=== PATIENT | female | born 1940 | race Caucasian/White ===

== ENCOUNTER 2019-06-05 02:08 | Inpatient (IN) | payer MEDICARE, BC ==
[~2019-06-05] VITALS: Ht 162.6 cm; Wt 72.6 kg
[2019-06-05] VITALS (23 sets, daily range): BP systolic 92–130; BP diastolic 54–93; BMI 27.5
--- NOTE | 2019-06-05 02:15 | NUR ---
Received patient from ER via stretcher to 2308, admission assessment completed per flowsheet. Patient AO x4, calm and cooperative. S1/S2 noted NSR on telemetry, rythmic and regular. Breathing is shallow on 6L via NC with O2 sat 97%, lung sounds clear bilateral upper and mid with diminished lower. Abdomen is round/soft with bowel sounds active x4, non-tender. All pulses palpable with cap refill < 3 sec, skin warm/dry. C/O headache/R knee aching, repositioned with slight stated relief. Paged Dr Manuel to notify of arrival, no further needs at this time. See flowsheet for details, all VSS and will continue to monitor.
[2019-06-05] MEDS ORDERED: MUPIROCIN22 GM TOPICAL (02:18)
[2019-06-05] MEDS ORDERED: LISINOPRIL-HCT1 EAC4 PO (02:19)
[2019-06-05] MEDS ORDERED: VITAMIN D250000 UNIT PO (02:19)
[2019-06-05] MEDS ORDERED: EVISTA60 MG PO (02:19)
[2019-06-05] MEDS ORDERED: CARDIZEM 90 MG90 MG PO (02:19)
[2019-06-05] MEDS ORDERED: ALEVE220 MG PO (02:21)
[2019-06-05] MEDS ORDERED: MERIBIN5 MG PO (02:22)
[2019-06-05] MEDS ORDERED: ASPIRIN EC81 M1 PO (02:23)
[2019-06-05 04:59] LABS: BASOPHILS 0 % (0-2); EOSINOPHILS 0.7 % (0-7); HEMATOCRIT 31.9 % (36.0-48.0); HEMOGLOBIN 10.1 g/dL (12-16); IMMATURE GRANULOCYTES 0.3 % (0-5); LYMPHOCYTES 12.6 % (15-50); MCH 28.5 pg (26.0-34.0); MCHC 31.7 g/dL (31.0-37.0); MCV 90.1 fL (80.0-100.0); MEAN PLATELET VOLUME 9.2 fL (7.4-10.4); MONOCYTES 9.8 % (2-11); NEUTROPHILS 76.6 % (40-80); PLATELET COUNT 134 10x3/uL (130-400); RBC 3.54 10x6/uL (4.00-5.40); RDW 13.5 % (11.5-14.5); WBC 7.2 10x3/uL (4.8-10.8)
[2019-06-05 05:15] LABS: APTT 34.9 SECONDS (22.8-39.4); INR 1.48 (0.85-1.17); PROTIME 17.3 SECONDS (11.6-15.0)
--- NOTE | 2019-06-05 05:15 | NUR ---
Patient sleeping in bed with eyes closed, no s/s of distress at this time. Lung sounds clear bilateral upper and mid with diminished lower, all pulses palpable with cap refill < 3 sec. Medication pulled by greenhouse manager, given as ordered. No further needs and will continue to monitor.
[2019-06-05 05:24] LABS: ALKALINE PHOSPHATASE 75 U/L (46-116); ALT (SGPT) 20 U/L (10-68); BILIRUBIN - TOTAL 0.27 mg/dL (0.2-1.3); CALC OSMOLALITY 277 mosm/kg (275-300); CALCIUM 7.9 mg/dL (8.5-10.1); CHLORIDE - SERUM 104 mmol/L (98-107); CREATININE - SERUM 0.5 mg/dL (0.6-1.3); GLUCOSE 116 mg/dL (74-106); MAGNESIUM - SERUM 1.8 mg/dL (1.8-2.4); POTASSIUM - SERUM 3.5 mmol/L (3.5-5.1); PROTEIN - SERUM 5.5 g/dL (6.4-8.2); SODIUM 140 mmol/L (136-145); UREA NITROGEN 8 mg/dL (7-18); eGFR NON AFRICAN AMERICAN > 90 mL/min (90-120)
--- NOTE | 2019-06-05 08:02 | NUR ---
LYING IN BED AWAKE AT THIS TIME. NO ACUTE DISTRESS NOTED. VSS. PT COMPLAINT OF DISCOMFORT TO RT KNEE WHERE SHE HAD SURGERY ON THE . WILL NOTIFY PULMONOLOGY REGARDING THIS. TURNED Q2H. CALL LIGHT IN REACH. WILL CONTINUE PLAN OF CARE.
--- NOTE | 2019-06-05 09:06 | NUR ---
CALLED [facility] TO SEE IF THEY WILL SEND PT INFO FROM STAY AT THAT HOSPITAL. SPOKE WITH JOVANA WHO STATED SHE WILL FAX THE INFORMATION. WAITING ON FAX.
--- NOTE | 2019-06-05 10:06 | NUR ---
PAPERWORK RECIEVED FROM OTHER HOSPITAL, PLACED IN CHART.
--- NOTE | 2019-06-05 10:14 | NUR ---
FAMILY AT BEDSIDE AT THIS TIME. NO ACUTE DISTRESS NOTED. WILL CONTINUE PLAN OF CARE. ALSO AT THIS TIME DR HORVATH ON UNIT AND HAS SPOKEN WITH FAMILY. VSS. WILL CONTINUE PLAN OF CARE.
--- NOTE | 2019-06-05 10:32 | NUR ---
DR NIEVES PAGED REGARDING CONSULT.
--- NOTE | 2019-06-05 10:34 | NUR ---
DR NIEVES NOTIFIED OF CONSULT.
--- NOTE | 2019-06-05 12:09 | NUR ---
UP IN BED VISITING WITH FAMILY AND EATING LUNCH AT THIS TIME. NO ACUTE DISTRESS NOTED. VSS. CALL LIGHT IN REACH. WILL CONTINUE PLAN OF CARE.
--- NOTE | 2019-06-05 13:42 | NUR ---
DALEY PLACED AT THIS TIME PER PHYSICIAN ORDERS FOR ACCURATE I&O. 16F PLACED. CLEAR YELLOW URINE FLOWING IN TO CLOSED CONTAINER. NO ACUTE DISTRESS NOTED. WILL CONTINUE PLAN OF CARE.
--- NOTE | 2019-06-05 15:09 | NUR ---
NO ACUTE DISTRESS NOTED. VSS. PT ASSISTED WITH REPOSITIONING Q2H. CALL LIGHT IN REACH. WILL CONTINUE PLAN OF CARE.
--- NOTE | 2019-06-05 19:00 | NUR ---
PT REPORT RECEIVED FROM DAY SHIFT NURSE. VSS. PERFORMED SHIFT ASSESSMENT WILL CONTINUE TO MONITOR
--- NOTE | 2019-06-05 21:00 | NUR ---
PT REQUESTED LIGHT BE TURNED OFF. PT RESTING IN BED. WILL CONTINUE TO MONITOR
--- NOTE | 2019-06-05 23:00 | NUR ---
PT REASSESSMENT COMPLETED. PT RESTING IN BED. NO SIGNS OF DISTRESS NOTED. VSS. WILL CONTINUE TO MONITOR
[2019-06-06] VITALS (17 sets, daily range): BP systolic 95–156; BP diastolic 59–91
--- NOTE | 2019-06-06 01:00 | NUR ---
PT RESTING IN BED. NO COMPLAINTS NOTED AT THIS TIME. WILL CONTINUE TO MONITOR
--- NOTE | 2019-06-06 03:00 | NUR ---
PT RESTING IN BED. NO SIGNS OF DISTRESS NOTED. REASSESSMENT COMPLETED. VSS. NO COMPLAINTS OF PAIN AT THIS TIME. WILL CONTINUE TO MONITOR
[2019-06-06 03:43] LABS: HEMATOCRIT 30.8 % (36.0-48.0); HEMOGLOBIN 9.7 g/dL (12-16); MCHC 31.5 g/dL (31.0-37.0); MEAN PLATELET VOLUME 8.7 fL (7.4-10.4); PLATELET COUNT 155 10x3/uL (130-400); RBC 3.46 10x6/uL (4.00-5.40); RDW 13.4 % (11.5-14.5); WBC 5.9 10x3/uL (4.8-10.8)
[2019-06-06 04:20] LABS: ALKALINE PHOSPHATASE 75 U/L (46-116); ALT (SGPT) 18 U/L (10-68); BILIRUBIN - TOTAL 0.29 mg/dL (0.2-1.3); CALC OSMOLALITY 281 mosm/kg (275-300); CALCIUM 7.3 mg/dL (8.5-10.1); CARBON DIOXIDE 33.2 mmol/L (21.0-32.0); CHLORIDE - SERUM 106 mmol/L (98-107); CREATININE - SERUM 0.4 mg/dL (0.6-1.3); GLUCOSE 97 mg/dL (74-106); MAGNESIUM - SERUM 1.9 mg/dL (1.8-2.4); PHOSPHOROUS 2.2 mg/dL (2.5-4.9); POTASSIUM - SERUM 3.5 mmol/L (3.5-5.1); PRO BNP 3670 pg/mL (0-450); SODIUM 142 mmol/L (136-145); UREA NITROGEN 10 mg/dL (7-18); eGFR NON AFRICAN AMERICAN > 90 mL/min (90-120)
[2019-06-06 04:24] LABS: TROPONIN-I < 0.017 ng/mL (0.000-0.060)
--- NOTE | 2019-06-06 05:00 | NUR ---
PT RESTING IN BED. AWAKENS EASILY. ELECTROLYTE PROTOCOL IN PLACE. REPLACED K+ AND PHOSPHORUS. WILL CONTINUE TO MONITOR
[2019-06-06 07:30] LABS: EOSINOPHILS 1 % (0-7); LYMPHOCYTES 17 % (15-50); MONOCYTES 8 % (2-11); NEUTROPHILS 74 % (40-80); PLATELET ESTIMATE NORMAL
--- NOTE | 2019-06-06 07:38 | NUR ---
UP IN BED AWAKE AT THIS TIME WATCHING TV. NO ACUTE DISTRESS NOTED. VSS. CALL LIGHT IN REACH. PT IS ALERT AND ORIENTED AND DENIES ANY NEEDS. WILL CONTINUE PLAN OF CARE.
--- NOTE | 2019-06-06 09:38 | NUR ---
UP IN BED VISITING WITH FAMILY. DENIES ANY NEEDS. NO ACUTE DISTRESS NOTED. WILL CONTINUE PLAN OF CARE.
--- NOTE | 2019-06-06 11:48 | NUR ---
UP IN BED EATING LUNCH AT THIS TIME. NO ACUTE DISTRESS NOTED. VSS. CALL LIGHT IN REACH. PER DR HORVATH, TRANSFER PT. WILL CONTINUE PLAN OF CARE.
--- NOTE | 2019-06-06 13:47 | NUR ---
PHYSICAL THERAPY IN PT ROOM WORKING WITH PT. NO ACUTE DISTRESS NOTED. VSS. WILL CONTINUE PLAN OF CARE.
--- NOTE | 2019-06-06 15:16 | NUR ---
NO ACUTE DISTRESS NOTED. VSS. TURNED Q2H. WILL CONTINUE PLAN OF CARE.
--- NOTE | 2019-06-06 16:15 | NUR ---
PER DR MATTHEWS, OKKIA TO TRANSFER TO THE FLOOR.
--- NOTE | 2019-06-06 18:16 | NUR ---
PER DR MATTHEWS; SALINE LOCK IV. OKAY FOR CPM FOR RT KNEE TO BE USED 2H AT A TIME THREE TIMES A DAY TO EQUAL 6 HOURS TOTAL A DAY PT WAS DIRECTED TO DO [facility]. ALSO STATED TO ONIEL DALEY LONG PT HAS NO RETENTION. WILL PLACE ORDERS. PT DENIES ANY NEEDS. WILL CONTINUE PLAN OF CARE.
--- NOTE | 2019-06-06 19:12 | NUR ---
DALEY DC AT THIS TIME PER ORDERS. CATHETER TIP INTACT. ALSO NOTED PT TO TRANSFER TO 2230. CALLING TO GIVE REPORT AT THIS TIME.
--- NOTE | 2019-06-06 19:21 | NUR ---
REPORT CALLED TO RECIEVING NURSE, KESHIA. KESHIA REQUESTED STAFF WAIT 15 MIN BEFORE BRINGING PT OVER. NO ACUTE DISTRESS NOTED. VSS. WILL CONTINUE PLAN OF CARE.
--- NOTE | 2019-06-06 19:35 | NUR ---
WAITING TO TRANSFER PT TO FLOOR. VSS
[2019-06-07 04:00] VITALS: BP 145/81
--- NOTE | 2019-06-07 04:16 | NUR ---
reseved pt. at shift change alert and orented . IV to right fr F?C had been d/c just before arivail and no output yet per report. O2 via n/c at 3L. Total right knee on fri. at [facility]. per report she my use her CPM as oreded by the dr who did her surg. 2hr at a time 3x a day. Family came and stated she has a dry cough that has been present befor knee surg. and having some trouble swallowing, tok meds whole with out diffulity. Telemetry in place. call light in reach. no s/s of distress.
[2019-06-07 05:04] LABS: BASOPHILS 0.2 % (0-2); EOSINOPHILS 2.4 % (0-7); HEMATOCRIT 29.7 % (36.0-48.0); HEMOGLOBIN 9.8 g/dL (12-16); IMMATURE GRANULOCYTES 0.2 % (0-5); LYMPHOCYTES 24.1 % (15-50); MCH 29.3 pg (26.0-34.0); MCV 88.7 fL (80.0-100.0); MEAN PLATELET VOLUME 9.1 fL (7.4-10.4); MONOCYTES 7.9 % (2-11); NEUTROPHILS 65.2 % (40-80); RBC 3.35 10x6/uL (4.00-5.40); RDW 13.2 % (11.5-14.5); WBC 5.3 10x3/uL (4.8-10.8)
[2019-06-07 05:10] LABS: PLATELET COUNT 191 10x3/uL (130-400)
[2019-06-07 05:19] LABS: ALBUMIN 1.8 g/dL (3.4-5.0); ALKALINE PHOSPHATASE 69 U/L (46-116); ALT (SGPT) 14 U/L (10-68); BILIRUBIN - TOTAL 0.26 mg/dL (0.2-1.3); CALC OSMOLALITY 281 mosm/kg (275-300); CARBON DIOXIDE 33.1 mmol/L (21.0-32.0); CHLORIDE - SERUM 105 mmol/L (98-107); CREATININE - SERUM 0.3 mg/dL (0.6-1.3); GLUCOSE 100 mg/dL (74-106); POTASSIUM - SERUM 3.7 mmol/L (3.5-5.1); PROTEIN - SERUM 5.3 g/dL (6.4-8.2); SODIUM 142 mmol/L (136-145); UREA NITROGEN 9 mg/dL (7-18); eGFR NON AFRICAN AMERICAN > 90 mL/min (90-120)
[2019-06-07 08:52] VITALS: BP 161/83
[2019-06-07 12:03] VITALS: BP 148/76
[2019-06-07 13:18] LABS: % SATURATION 10 % (15-55); IRON 17 ug/dl (35-150); TOTAL IRON BIND CAPACITY 169 ug/dl (260-445); UNSAT IRON BIND CAPACITY 152 ug/dl (150-375)
[2019-06-07 13:39] VITALS: Ht 162.6 cm; Wt 72.6 kg
[2019-06-07 13:44] LABS: FERRITIN 176 ng/mL (3-244)
--- NOTE | 2019-06-07 15:04 | MORECARE ---
CASE MANAGEMENT DISCHARGE SUMMARY PATIENT: JASS SAM UNIT: [id number] ADM DATE: 06/05/19 AGE: 78 : 39 SEX: F ROOM/BED: D.2230 AUTHOR: CONSTANCE FONG PHYSICIAN: REFERRING PHYSICIAN: JENAE LAUGHLIN MD DATE OF SERVICE: 06/07/19 Discharge Plan Patient Name: JASS SAM Facility: [facility]:[place] : 1940 Planned Disposition: Long Term Facility Anticipated Discharge Date: Discharge Date: Expected LOS: Initial Reviewer: [id number] Initial Review Date: 06/07/2019 Generated: 06/07/19 4:04 pm Comments DCP- Discharge Planning Updated by [id number]: Kimberly Sena on 06/07/19 2:[address] Patient Name: JASS SAM Admission Status: Elective Accout number: [id number] Admission Date: 06-05-2019 : 1940 Admission Diagnosis: Attending: JENAE HONG Current LOS: 2 Anticipated DC Date: Planned Disposition: Primary Insurance: MEDICARE A & B Discharge Planning Comments: CM met with patient at bedside after explaining CM role and obtaining verbal consent. STATES IS SETTING HER UP [facility] CHERELLE SIGNED. CM TO FOLLOW AND ASSIST. Plastics Fabrication Supervisor: Kimberly Sena DCPIA - Discharge Planning Initial Assessment Updated by [id number]: Kimberly Sena on 06/07/19 3:02 pm * Is the patient Alert and Oriented? Yes * PCP SMALLS * Pharmacy [facility] * Preadmission Environment Home with Family * ADLs Independent * Other Equipment WALKER, CPM * Additional services required to return to the preadmission environment? Yes * Can the patient safely return to the preadmission environment? Yes * Has this patient been hospitalized within the prior 30 days at any hospital? No External Providers [facility] [place] Next Contact Date: Service Request Date: Service Type: Resolution: Reviewer: Comments: Coverage Notice Reviewer: [id number] Letty Sena Notice Issued Date-Time: 06/07/2019 14:58 Notice Type: Patient Choice Letter Notice Delivered To: Patient Relationship to Patient: Rehabilitation Therapy Aide Name: Delivery Method: HAND - Hand Delivered Brenda Days: Prior Verbal Notification: Recipient Understood Notice: Yes Recipient Signature: Yes Med Rec Note Co-signed by Attending: Coverage Notice Comment: [facility] Patient Name: JASS SAM Page [phone] at 1504 All edits/amendments must be made on the electronic document DICTATION DATE: 06/07/19 150 CHEMICAL TANK WORKER: YORDY 06/07/19 1504 RPT#: [id number] DC DATE: STATUS: ADM IN [facility] [address] [place] [address] END OF REPORT
--- NOTE | 2019-06-07 15:15 | NUR ---
Rehab Note- Acute INpatient Rehab prescreen order received. The patient and family plan for her to go to [facility] post acute hospital stay. Spoke with MARTHA Harris. Thank you for this referral! Luz Echevarria RN Clinical Liaison, [facility]
--- NOTE | 2019-06-07 15:21 | NUR ---
PATIENT ON CPM. SAYS SHE COMES OFF AT 1615. NO NEEDS AT THIS TIME. SHE IS RESTING AND HOPING TO TAKE A NAP. CL IN REACH. NO NEEDS AT THIS TIME.
--- NOTE | 2019-06-07 16:10 | MORECARE ---
CASE MANAGEMENT DISCHARGE SUMMARY PATIENT: AJSS SAM UNIT: [id number] ADM DATE: 06/05/19 AGE: 78 : 39 SEX: F ROOM/BED: D.2230 AUTHOR: AJITDOC PHYSICIAN: REFERRING PHYSICIAN: JENAE LAUGHLIN MD DATE OF SERVICE: 06/07/19 Discharge Plan Patient Name: JASS SAM Facility: [facility]:[place] : 1940 Planned Disposition: Penitentiary Facility Anticipated Discharge Date: Discharge Date: Expected LOS: Initial Reviewer: [id number] Initial Review Date: 06/07/2019 Generated: 06/07/19 5:09 pm DCP- Discharge Planning Updated by [id number]: Kimberly Sena on 06/07/19 3:[address] Patient Name: JASS SAM Admission Status: Elective Accout number: [id number] Admission Date: 06-05-2019 : 1940 Admission Diagnosis: Attending: JENAE HONG Current LOS: 2 Anticipated DC Date: Planned Disposition: Primary Insurance: MEDICARE A & B Discharge Planning Comments: CM met with patient at bedside after explaining CM role and obtaining verbal consent. STATES IS SETTING HER UP WITH [facility] CHERELLE SIGNED. CM TO FOLLOW AND ASSIST. Painter Plate: Kimberly Sena Appended by Kimberly Sena on 06/07/2019 16:04 CDT: FAXED REFERRAL TO [facility] WITH [place]. DCPIA - Discharge Planning Initial Assessment Updated by [id number]: Kimberly Sena on 06/07/19 3:02 pm * Is the patient Alert and Oriented? Yes * PCP SMALLS * Pharmacy [facility] * Preadmission Environment Home with Family * ADLs Independent * Other Equipment WALKER, CPM * Additional services required to return to the preadmission environment? Yes * Can the patient safely return to the preadmission environment? Yes * Has this patient been hospitalized within the prior 30 days at any hospital? No External Providers [facility] [place] Next Contact Date: Service Request Date: Service Type: Resolution: Reviewer: Comments: Coverage Notice Reviewer: [id number] - Kimberly Sena Notice Issued Date-Time: 06/07/2019 14:58 Notice Type: Patient Choice Letter Notice Delivered To: Patient Relationship to Patient: Family Educator Name: Delivery Method: HAND - Hand Delivered Brenda Days: Prior Verbal Notification: Recipient Understood Notice: Yes Recipient Signature: Yes Med Rec Note Co-signed by Attending: Coverage Notice Comment: [facility] Last DP export: 06/07/19 2:04 p Patient Name: JASS SAM Page [phone] at 1610 All edits/amendments must be made on the electronic document DICTATION DATE: 06/07/191608 SORT LINE WORKER: YORDY 06/07/19 160 RPT#: [id number] DC DATE: STATUS: ADM IN [facility] [address] [place] [address] END OF REPORT
[2019-06-07 17:02] VITALS: BP 100/70
--- NOTE | 2019-06-07 17:59 | NUR ---
PATIENT ON CPM MACHINE AGAIN. NO NEEDS AT THIS TIME. CL IN REACH WCTM
--- NOTE | 2019-06-07 19:21 | NUR ---
LYING IN BED WITH FAMILY AT BEDSIDE. ABLE TO VOICE ALL NEEDS. COMPLAINS OF SLIGHT HEADACHE, WILL TREAT WITH MEDICATION, SHOWS NO S/S OF ANY ACUTE DISTRESS. VS WNL. WILL NOTE ANY CHANGE.
[2019-06-07 19:38] LABS: APPEARANCE CLEAR (CLEAR); BILIRUBIN NEGATIVE (NEGATIVE); COLOR YELLOW (YELLOW); GLUCOSE NEGATIVE (NEGATIVE); KETONE NEGATIVE (NEGATIVE); NITRITE NEGATIVE (NEGATIVE); PROTEIN NEGATIVE (NEGATIVE); RED CELLS - URINE 0-5 /hpf (0-5); UROBILINOGEN NORMAL (NORMAL); WHITE CELLS - URINE 0-5 /hpf (NEGATIVE)
[2019-06-07 19:39] LABS: BACTERIA FEW /hpf (NEGATIVE)
[2019-06-07 20:34] VITALS: BP 130/68
--- NOTE | 2019-06-07 20:59 | NUR ---
AT 1999, HEADACHE WAS TREATED VIA MEDICATION PER ORDERS, WILL NOTE ANY CHANGE.
--- NOTE | 2019-06-07 21:00 | NUR ---
MEDICATION WAS EFFECTIVE FOR HEADACHE, WILL NOTE ANY CHANGE.
[2019-06-08 01:22] VITALS: BP 114/55
--- NOTE | 2019-06-08 02:30 | NUR ---
AT 0120, REQUESTED PAIN MEDICATION, GIVEN PER ORDERS. AT THIS TIME, PT IS RESTING QUIETLY IN BED WITH EYES CLOSED AND NO S/S OF ANY ACUTE DISTRESS. WILL NOTE ANY CHANGE.
--- NOTE | 2019-06-08 03:06 | NUR ---
I have reviewed this patient and I concur with the Shift Assessment completed by the Licensed Practical Nurse today this shift.
[2019-06-08 05:18] VITALS: BP 125/60
[2019-06-08 06:05] LABS: BASOPHILS 0.2 % (0-2); EOSINOPHILS 2.6 % (0-7); HEMATOCRIT 31.5 % (36.0-48.0); IMMATURE GRANULOCYTES 0.2 % (0-5); LYMPHOCYTES 21.2 % (15-50); MCHC 31.7 g/dL (31.0-37.0); MCV 88.2 fL (80.0-100.0); MEAN PLATELET VOLUME 8.9 fL (7.4-10.4); MONOCYTES 8.8 % (2-11); PLATELET COUNT 214 10x3/uL (130-400); RBC 3.57 10x6/uL (4.00-5.40); RDW 13.4 % (11.5-14.5); WBC 5.1 10x3/uL (4.8-10.8)
[2019-06-08 06:38] LABS: ALBUMIN 2.1 g/dL (3.4-5.0); ALKALINE PHOSPHATASE 73 U/L (46-116); ALT (SGPT) 16 U/L (10-68); BILIRUBIN - TOTAL 0.36 mg/dL (0.2-1.3); CALC OSMOLALITY 285 mosm/kg (275-300); CALCIUM 7.8 mg/dL (8.5-10.1); CARBON DIOXIDE 34.6 mmol/L (21.0-32.0); CHLORIDE - SERUM 105 mmol/L (98-107); GLUCOSE 101 mg/dL (74-106); POTASSIUM - SERUM 3.5 mmol/L (3.5-5.1); PROTEIN - SERUM 5.3 g/dL (6.4-8.2); SODIUM 144 mmol/L (136-145); UREA NITROGEN 9 mg/dL (7-18)
[2019-06-08 06:39] LABS: CREATININE - SERUM 0.5 mg/dL (0.6-1.3); eGFR NON AFRICAN AMERICAN > 90 mL/min (90-120)
[2019-06-08 08:11] LABS: HAPTOGLOBIN 288 mg/dL (34-200)
[2019-06-08 08:36] LABS: INR 1.23 (0.85-1.17)
[2019-06-08 08:57] VITALS: BP 135/74
[2019-06-08 10:10] LABS: ACLA - IGG AB <9 GPL U/mL (0-14); ACLA - IGM AB <9 MPL U/mL (0-12)
--- NOTE | 2019-06-08 10:58 | NUR ---
PATIENT CO A HEADACHE. REQUESTS A TYLENOL. WILL PROVIDE. CL IN REACH. FRESH WATER PROVIDED. [facility]
[2019-06-08 12:11] VITALS: BP 124/72
--- NOTE | 2019-06-08 14:58 | NUR ---
Calorie count - : kcal protein Breakfast 280 12 Lunch 300 15 Dinner 350 10 HS snack 200 10 Total 1130 kcal 47 gm protein
--- NOTE | 2019-06-08 15:32 | NUR ---
OT NOTE: PT COMPLETED GROOMING TASKS WITH SETUP. PT COMPLETED BUE AROM EXS. PT TOLERATED THERAPY WELL. THANK YOU, TAISHA PASCUAL
--- NOTE | 2019-06-08 20:08 | NUR ---
SPEECH THERAPY SAID THAT THEY SHOULD CONSULT GI FOR PATIENTS SWALLOWING PROBLEM SINCE IT OCCURS BELOW THE NECK AND BEYOND HER SCOPE.
[2019-06-08 22:08] VITALS: BP 139/71
[2019-06-09 00:50] VITALS: BP 114/60
--- NOTE | 2019-06-09 00:53 | NUR ---
PT RESTING IN BED. EYE CLOSED. NO SIGNS OF DISTRESS. BREATHING EVEN AND UNLABORED. IV SITE RT FA DRESSING CLEAN DRY AND INTACT. NO SIGNS OF INFECTION. 3LO2 HIGH FLOW NASAL CANNULA. LUNG SOUNDS CLEAR. BOWEL SOUNDS ACTIVE. TELE MONTIOR ON 110 SINUS. SKIN CLEAN DRY AND INTACT. NO SIGNS OF INFECTION. WILL CONTINUE PLAN OF CARE. CALL LIGHT IN REACH. BED LOWERED AND LOCKED. BED RAILS UPX2.
--- NOTE | 2019-06-09 02:18 | NUR ---
I have reviewed this patient and I concur with the Shift Assessment completed by the Licensed Practical Nurse today this shift.
[2019-06-09 05:34] VITALS: BP 129/60
[2019-06-09 05:43] LABS: INR 1.17 (0.85-1.17); PROTIME 14.4 SECONDS (11.6-15.0)
[2019-06-09 05:50] LABS: BASOPHILS 0.2 % (0-2); EOSINOPHILS 2.9 % (0-7); HEMATOCRIT 32.1 % (36.0-48.0); HEMOGLOBIN 10.2 g/dL (12-16); IMMATURE GRANULOCYTES 0.4 % (0-5); LYMPHOCYTES 26.3 % (15-50); MCH 28.2 pg (26.0-34.0); MCHC 31.8 g/dL (31.0-37.0); MCV 88.7 fL (80.0-100.0); MEAN PLATELET VOLUME 9.2 fL (7.4-10.4); MONOCYTES 8.3 % (2-11); NEUTROPHILS 61.9 % (40-80); PLATELET COUNT 244 10x3/uL (130-400); RBC 3.62 10x6/uL (4.00-5.40); RDW 13.8 % (11.5-14.5); WBC 5.5 10x3/uL (4.8-10.8)
[2019-06-09 05:57] LABS: ALBUMIN 2.3 g/dL (3.4-5.0); ALKALINE PHOSPHATASE 85 U/L (46-116); BILIRUBIN - TOTAL 0.37 mg/dL (0.2-1.3); CALC OSMOLALITY 279 mosm/kg (275-300); CALCIUM 8.5 mg/dL (8.5-10.1); CARBON DIOXIDE 33.7 mmol/L (21.0-32.0); CHLORIDE - SERUM 103 mmol/L (98-107); CREATININE - SERUM 0.5 mg/dL (0.6-1.3); GLUCOSE 99 mg/dL (74-106); PROTEIN - SERUM 6.2 g/dL (6.4-8.2); SODIUM 141 mmol/L (136-145); UREA NITROGEN 10 mg/dL (7-18); eGFR NON AFRICAN AMERICAN > 90 mL/min (90-120)
[2019-06-09 06:05] LABS: ALT (SGPT) 32 U/L (10-68)
[2019-06-09 09:00] VITALS: BP 150/75
--- NOTE | 2019-06-09 11:19 | NUR ---
NUTRITION F/U PT OOR, ONLY SMALL AMT BREAKFAST EATEN. INTAKE RECORDS INDICATE ~50% INTAKE PREVIOUS 3 MEALS. WILL CONTINUE TO PROVIDE AHA DIET, MONITOR PO INTAKE. RD FOLLOWING
[2019-06-09 12:05] VITALS: BP 125/65
[2019-06-09] MEDS ORDERED: LOVENOX80 MG/0.8 SC (12:16)
[2019-06-09] MEDS ORDERED: MUCINEX DM ER1 EAC1 PO (12:16)
[2019-06-09] MEDS ORDERED: Tessalon Perle PO (12:17)
[2019-06-09] MEDS ORDERED: OMNICEF300 MG PO (12:18)
[2019-06-09] MEDS ORDERED: ALBUTEROL SULF8.5 GM INH (12:18)
[2019-06-09] MEDS ORDERED: COUMADIN6 MG PO (12:21)
--- NOTE | 2019-06-09 12:28 | NUR ---
PT RESTING IN BED. NO SIGNS OF DISTRESS. IV TO RIGHT FORARM PATENT NO REDNESS OR TENDERNESS. ON TELEMETRY 87 SR. ON 3L NC. HAS INCISION TO RIGHT KNEE DRESSING CLEAN AND INTACT. COMPLAINS OF PAIN. MEDICATIONS GIVEN. DENIES ANY FURTHER NEED AT THIS TIME. CALL LIGHT IN REACH. BED LOW POSITION. FAMILY AT BEDSIDE. FALL PRECAUTIONS IN PLACE.
--- NOTE | 2019-06-09 12:33 | MORECARE ---
CASE MANAGEMENT DISCHARGE SUMMARY PATIENT: JASS SAM UNIT: [id number] ADM DATE: 06/05/19 AGE: 78 : 39 SEX: F ROOM/BED: D.2230 AUTHOR: AJIT,DOC PHYSICIAN: REFERRING PHYSICIAN: JENAE LAUGHLIN MD DATE OF SERVICE: 06/09/19 Discharge Plan Patient Name: JASS SAM Facility: [facility]:[place] : 1940 Planned Disposition: Long Term Facility Anticipated Discharge Date: Discharge Date: Expected LOS: Initial Reviewer: [id number] Initial Review Date: 06/07/2019 Generated: 06/09/19 1:33 pm Comments DCP- Discharge Planning Updated by [email or web address]: Caitlin Melchor on 06/09/19 11:[address] Spoke with Ava at [facility] and rehab, she has been accepted. Ava states they can do a Lovenox bridge with Coumadin and have lab drawn and adjust as needed. I spoke with Esteban Krishna, they will discharge today. telecommunicator supervisor per Ava is at 2PM. She called her daughter in ultrasound and notified her . She will be going to a skilled (Medicare) bed. DCP- Discharge Planning Updated by [id number]: Kimberly Sena on 06/07/19 3:[address] Patient Name: JASS SAM Admission Status: Elective Accout number: [id number] Admission Date: 06-05-2019 : 1940 Admission Diagnosis: Attending: JENAE HONG Current LOS: 2 Anticipated DC Date: Planned Disposition: Primary Insurance: MEDICARE A & B Discharge Planning Comments: CM met with patient at bedside after explaining CM role and obtaining verbal consent. STATES IS SETTING HER UP WITH [facility]. CHERELLE SIGNED. CM TO FOLLOW AND ASSIST. Biological Engineer: Kimberly Sena Appended by Kimberly Sena on 06/07/2019 16:04 CDT: FAXED REFERRAL TO [facility] WITH [place]. DCPIA - Discharge Planning Initial Assessment Updated by [id number]: Kimberly Sena on 06/07/19 3:02 pm * Is the patient Alert and Oriented? Yes * PCP SMALLS * Pharmacy [facility] * Preadmission Environment Home with Family * ADLs Independent * Other Equipment WALKER, CPM * Additional services required to return to the preadmission environment? Yes * Can the patient safely return to the preadmission environment? Yes * Has this patient been hospitalized within the prior 30 days at any hospital? No Coverage Notice Reviewer: [id number] Letty Sena Notice Issued Date-Time: 06/07/2019 14:58 Notice Type: Patient Choice Letter Notice Delivered To: Patient Relationship to Patient: Retail Product Advisor Name: Delivery Method: HAND - Hand Delivered Brenda Days: Prior Verbal Notification: Recipient Understood Notice: Yes Recipient Signature: Yes Med Rec Note Co-signed by Attending: Coverage Notice Comment: [facility] Reviewer: [id number] Letty Melchor Notice Issued Date-Time: 06/09/2019 12:00 Notice Type: IM Discharge Notice Notice Delivered To: Patient Relationship to Patient: Self Retail Product Advisor Name: Delivery Method: HAND - Hand Delivered Brenda Days: Prior Verbal Notification: Recipient Understood Notice: Yes Recipient Signature: Yes Med Rec Note Co-signed by Attending: Coverage Notice Comment: IMM explained, signed, given, copy placed in MR Last DP export: 06/07/19 3:10 p Patient Name: JASS SAM Page [phone] at 1233 All edits/amendments must be made on the electronic document DICTATION DATE: 06/09/19 1232 ELECTRIC MOTOR TESTER: YORDY 06/09/19 1232 RPT#: [id number] DC DATE: STATUS: ADM IN [facility] [address] [place] [address] END OF REPORT
--- NOTE | 2019-06-09 14:50 | MORECARE ---
CASE MANAGEMENT DISCHARGE SUMMARY PATIENT: JASS SAM UNIT: [id number] ADM DATE: 06/05/19 AGE: 78 : 39 SEX: F ROOM/BED: D.2230 AUTHOR: AJIT,DOC PHYSICIAN: REFERRING PHYSICIAN: JENAE LAUGHLIN MD DATE OF SERVICE: 06/09/19 Discharge Plan Patient Name: JASS SAM Facility: [facility]:[place] : 1940 Planned Disposition: Usp Facility Anticipated Discharge Date: Discharge Date: Expected LOS: Initial Reviewer: [id number] Initial Review Date: 06/07/2019 Generated: 06/09/19 3:49 pm Comments DCP- Discharge Planning Updated by [email or web address]: Caitlin Melchor on 06/09/19 11:[address] Spoke with Ava at [facility] and rehab, she has been accepted. Ava states they can do a Lovenox bridge with Coumadin and have lab drawn and adjust as needed. I spoke with Esteban Krishna, they will discharge today. supervisor show operations per Ava is at 2PM. She called her daughter in ultrasound and notified her . She will be going to a skilled (Medicare) bed. DCP- Discharge Planning Updated by [id number]: Kimberly Sena on 06/07/19 3:[address] Patient Name: JASS SAM Admission Status: Elective Accout number: [id number] Admission Date: 06-05-2019 : 1940 Admission Diagnosis: Attending: JENAE HONG Current LOS: 2 Anticipated DC Date: Planned Disposition: Primary Insurance: MEDICARE A & B Discharge Planning Comments: CM met with patient at bedside after explaining CM role and obtaining verbal consent. STATES IS SETTING HER UP WITH [facility]. CHERELLE SIGNED. CM TO FOLLOW AND ASSIST. Spout Positioner: Kimberly Sena Appended by Kimberly Sena on 06/07/2019 16:04 CDT: FAXED REFERRAL TO [facility] WITH [place]. DCPIA - Discharge Planning Initial Assessment Updated by [id number]: Kimberly Sena on 06/07/19 3:02 pm * Is the patient Alert and Oriented? Yes * PCP SMALLS * Pharmacy [facility] * Preadmission Environment Home with Family * ADLs Independent * Other Equipment WALKER, CPM * Additional services required to return to the preadmission environment? Yes * Can the patient safely return to the preadmission environment? Yes * Has this patient been hospitalized within the prior 30 days at any hospital? No Coverage Notice Reviewer: [id number] Letty Sena Notice Issued Date-Time: 06/07/2019 14:58 Notice Type: Patient Choice Letter Notice Delivered To: Patient Relationship to Patient: Machine Shop Specialist Name: Delivery Method: HAND - Hand Delivered Brenda Days: Prior Verbal Notification: Recipient Understood Notice: Yes Recipient Signature: Yes Med Rec Note Co-signed by Attending: Coverage Notice Comment: [facility] Reviewer: [id number] Letty Melchor Notice Issued Date-Time: 06/09/2019 12:00 Notice Type: IM Discharge Notice Notice Delivered To: Patient Relationship to Patient: Self Machine Shop Specialist Name: Delivery Method: HAND - Hand Delivered Brenda Days: Prior Verbal Notification: Recipient Understood Notice: Yes Recipient Signature: Yes Med Rec Note Co-signed by Attending: Coverage Notice Comment: IMM explained, signed, given, copy placed in MR Last DP export: 06/09/19 11:33 a Patient Name: JASS SAM Page [phone] at 1450 All edits/amendments must be made on the electronic document DICTATION DATE: 06/09/191448 JAVA XML DEVELOPER: YORDY 06/09/191448 RPT#: [id number] DC DATE: STATUS: ADM IN [facility] [address] [place] [address] END OF REPORT
--- NOTE | 2019-06-09 15:21 | MORECARE ---
CASE MANAGEMENT DISCHARGE SUMMARY PATIENT: JASS SAM UNIT: [id number] ADM DATE: 06/05/19 AGE: 78 : 39 SEX: F ROOM/BED: D.2230 AUTHOR: CONSTANCE FONG PHYSICIAN: REFERRING PHYSICIAN: JENAE LAUGHLIN MD DATE OF SERVICE: 06/09/19 Discharge Plan Patient Name: JASS SAM Facility: [facility]:[place] : 1940 Planned Disposition: Correction Facility Anticipated Discharge Date: Discharge Date: Expected LOS: Initial Reviewer: [id number] Initial Review Date: 06/07/2019 Generated: 06/09/19 4:21 pm DCP- Discharge Planning Updated by [id number]: Caitlin Camerongrzegorz on 06/09/19 2:[address] Primary has held discharge until cardiology sees the patient again and agrees with discharge. [facility] and informed that likely she can discharge tomorrow. DCP- Discharge Planning Updated by [id number]: Caitlin Camerongrzegorz on 06/09/19 11:[address] [facility]. Ava states they can do a Lovenox bridge with Coumadin and have lab drawn and adjust as needed. I spoke with Esteban Krishna, they will discharge today. academic support coordinator per Ava is at 2PM. She called her daughter in ultrasound and notified her . She will be going to a skilled (Medicare) bed. DCP- Discharge Planning Updated by [id number]: Kimberly Sena on 06/07/19 3:[address] Patient Name: JASS SAM Admission Status: Elective Accout number: [id number] Admission Date: 06-05-2019 : 1940 Admission Diagnosis: Attending: JENAE HONG Current LOS: 2 Anticipated DC Date: Planned Disposition: Primary Insurance: MEDICARE A & B Discharge Planning Comments: CM met with patient at bedside after explaining CM role and obtaining verbal consent. [facility] IS [facility] HER [facility] CHERELLE SIGNED. CM TO FOLLOW AND ASSIST. Project Eng: Kimberly Sena Appended by Kimberly Sena on 06/07/2019 16:04 CDT: FAXED REFERRAL TO [facility] WITH [place]. DCPIA - Discharge Planning Initial Assessment Updated by [id number]: Kimberly Sena on 06/07/19 3:02 pm * Is the patient Alert and Oriented? Yes * PCP SMALLS * Pharmacy [facility] * Preadmission Environment Home with Family * ADLs Independent * Other Equipment WALKER, CPM * Additional services required to return to the preadmission environment? Yes * Can the patient safely return to the preadmission environment? Yes * Has this patient been hospitalized within the prior 30 days at any hospital? No Coverage Notice Reviewer: [id number] - Kimberly Sena Notice Issued Date-Time: 06/07/2019 14:58 Notice Type: Patient Choice Letter Notice Delivered To: Patient Relationship to Patient: Cardiac Cath Rn Name: Delivery Method: HAND - Hand Delivered Brenda Days: Prior Verbal Notification: Recipient Understood Notice: Yes Recipient Signature: Yes Med Rec Note Co-signed by Attending: Coverage Notice Comment: [facility] Reviewer: [id number] Letty Melchor Notice Issued Date-Time: 06/09/2019 12:00 Notice Type: IM Discharge Notice Notice Delivered To: Patient Relationship to Patient: Self Cardiac Cath Rn Name: Delivery Method: HAND - Hand Delivered Brenda Days: Prior Verbal Notification: Recipient Understood Notice: Yes Recipient Signature: Yes Med Rec Note Co-signed by Attending: Coverage Notice Comment: IMM explained, signed, given, copy placed in MR Last DP export: 06/09/19 1:50 p Patient Name: JASS SAM Page [id number] at 1521 All edits/amendments must be made on the electronic document DICTATION DATE: 06/09/19 1521 CLINICAL MANAGER HOME CARE: YORDY 06/09/19 1521 RPT#: [id number] DC DATE: STATUS: ADM IN [facility] [address] [place] [address] END OF REPORT
[2019-06-09 16:21] VITALS: BP 136/70
--- NOTE | 2019-06-09 18:21 | NUR ---
I have reviewed this patient and I concur with the Shift Assessment completed by the Licensed Practical Nurse today this shift.
[2019-06-09 20:52] VITALS: BP 138/70
[2019-06-10 01:11] VITALS: BP 128/64
[2019-06-10 06:01] VITALS: BP 142/68
[2019-06-10 06:25] LABS: BASOPHILS 0.2 % (0-2); EOSINOPHILS 2.5 % (0-7); HEMATOCRIT 31.7 % (36.0-48.0); HEMOGLOBIN 10.1 g/dL (12-16); IMMATURE GRANULOCYTES 0.6 % (0-5); LYMPHOCYTES 22.9 % (15-50); MCH 28.4 pg (26.0-34.0); MCHC 31.9 g/dL (31.0-37.0); MONOCYTES 10.1 % (2-11); NEUTROPHILS 63.7 % (40-80); PLATELET COUNT 253 10x3/uL (130-400); RBC 3.56 10x6/uL (4.00-5.40); WBC 4.8 10x3/uL (4.8-10.8)
[2019-06-10 06:39] LABS: ALBUMIN 2.4 g/dL (3.4-5.0); ALKALINE PHOSPHATASE 94 U/L (46-116); BILIRUBIN - TOTAL 0.34 mg/dL (0.2-1.3); CALC OSMOLALITY 281 mosm/kg (275-300); CALCIUM 8.1 mg/dL (8.5-10.1); CARBON DIOXIDE 33.5 mmol/L (21.0-32.0); CHLORIDE - SERUM 103 mmol/L (98-107); CREATININE - SERUM 0.5 mg/dL (0.6-1.3); GLUCOSE 98 mg/dL (74-106); POTASSIUM - SERUM 3.8 mmol/L (3.5-5.1); PROTEIN - SERUM 5.6 g/dL (6.4-8.2); SODIUM 142 mmol/L (136-145); UREA NITROGEN 9 mg/dL (7-18); eGFR NON AFRICAN AMERICAN > 90 mL/min (90-120)
[2019-06-10 06:41] LABS: ALT (SGPT) 42 U/L (10-68)
[2019-06-10 07:08] LABS: INR 1.63 (0.85-1.17); PROTIME 18.7 SECONDS (11.6-15.0)
[2019-06-10 07:14] LABS: HAPTOGLOBIN 287 mg/dL (34-200)
--- NOTE | 2019-06-10 08:16 | NUR ---
PATIENT RECIEVED FROM PREVIOUS SHIFT RESTING WITH NO NEEDS VOICED. ASSISTED TO BSC WITH USE OF WALKER, PATIENT TOLERATED WELL. DENIES PAIN AT THIS TIME. CL IN REACH
[2019-06-10 08:43] VITALS: BP 133/70
[2019-06-10 10:31] LABS: APPEARANCE CLEAR (CLEAR); BILIRUBIN NEGATIVE (NEGATIVE); COLOR STRAW (YELLOW); GLUCOSE NEGATIVE (NEGATIVE); KETONE NEGATIVE (NEGATIVE); NITRITE NEGATIVE (NEGATIVE); PROTEIN NEGATIVE (NEGATIVE); SPECIFIC GRAVITY 1.005 (1.005-1.020); UROBILINOGEN NORMAL (NORMAL)
--- NOTE | 2019-06-10 12:27 | MORECARE ---
CASE MANAGEMENT DISCHARGE SUMMARY PATIENT: JASS SAM UNIT: [id number] ADM DATE: 06/05/19 AGE: 78 : 39 SEX: F ROOM/BED: D.2230 AUTHOR: AJIT,DOC PHYSICIAN: REFERRING PHYSICIAN: JENAE LAUGHLIN MD DATE OF SERVICE: 06/10/19 Discharge Plan Patient Name: JASS SAM Facility: [facility]:[place] : 1940 Planned Disposition: Mcfp Facility Anticipated Discharge Date: Discharge Date: Expected LOS: Initial Reviewer: [id number] Initial Review Date: 06/07/2019 Generated: 06/10/19 1:27 pm Comments DCP- Discharge Planning Updated by [id number]: Caitlin Camerongrzegorz on 06/10/19 11:[address] Plan to discharge to a skilled bed today [facility] I called and spoke to Fela there and she will call me back with a last picker time. I informed Fela that patient is on 3 liters [place] oxygen. Discharging today to a skilled (Medicare) bed at [facility]. DCP- Discharge Planning Updated by [email or web address]: Caitlin Camerongrzegorz on 06/09/19 2:[address] Primary has held discharge until cardiology sees the patient again and agrees with discharge. I had notified [facility] and informed that likely she can discharge tomorrow. DCP- Discharge Planning Updated by [id number]: Caitlinaki Melchor on 06/09/19 11:[address] Spoke with Ava at [facility] and rehab, she has been accepted. Ava states they can do a Lovenox bridge with Coumadin and have lab drawn and adjust as needed. I spoke with Esteban Krishna, they will discharge today. chair upholsterer per Ava is at 2PM. She called her daughter in ultrasound and notified her . She will be going to a skilled (Medicare) bed. DCP- Discharge Planning Updated by [id number]: Kimberly Sena on 06/07/19 3:[address] Patient Name: JASS SAM Admission Status: Elective Accout number: [id number] Admission Date: 06-05-2019 : 1941 Admission Diagnosis: Attending: JEANE HONG Current LOS: 2 Anticipated DC Date: Planned Disposition: Primary Insurance: MEDICARE A & B Discharge Planning Comments: CM met with patient at bedside after explaining CM role and obtaining verbal consent. STATES IS SETTING HER UP WITH [facility]. CHERELLE SIGNED. CM TO FOLLOW AND ASSIST. Marketing Manager: Kimbrely Sena Appended by Kimberly Sena on 06/07/2019 16:04 CDT: FAXED REFERRAL TO [facility] [place]. DCPIA - Discharge Planning Initial Assessment Updated by [email or web address]: Kimberly Sena on 06/07/19 3:02 pm * Is the patient Alert and Oriented? Yes * PCP SMALLS * Pharmacy [facility] * Preadmission Environment Home with Family * ADLs Independent * Other Equipment WALKER, CPM * Additional services required to return to the preadmission environment? Yes * Can the patient safely return to the preadmission environment? Yes * Has this patient been hospitalized within the prior 30 days at any hospital? No Coverage Notice Reviewer: [id number] - Kimberly Sena Notice Issued Date-Time: 06/07/2019 14:58 Notice Type: Patient Choice Letter Notice Delivered To: Patient Relationship to Patient: School Aide Name: Delivery Method: HAND - Hand Delivered Brenda Days: Prior Verbal Notification: Recipient Understood Notice: Yes Recipient Signature: Yes Med Rec Note Co-signed by Attending: Coverage Notice Comment: [facility] Reviewer: [id number] Letty Melchor Notice Issued Date-Time: 06/09/2019 12:00 Notice Type: IM Discharge Notice Notice Delivered To: Patient Relationship to Patient: Self School Aide Name: Delivery Method: HAND - Hand Delivered Brenda Days: Prior Verbal Notification: Recipient Understood Notice: Yes Recipient Signature: Yes Med Rec Note Co-signed by Attending: Coverage Notice Comment: IMM explained, signed, given, copy placed in MR Last DP export: 06/09/19 2:21 p Patient Name: JASS SAM Page [id number] at 1227 All edits/amendments must be made on the electronic document DICTATION DATE: 06/10/19 1227 TOLL TICKET CLERK: YORDY 06/10/19 1227 RPT#: [id number] DC DATE: STATUS: ADM IN [facility] [address] [facility] [place] [address] END OF REPORT
[2019-06-10 13:12] VITALS: BP 153/73
--- NOTE | 2019-06-10 14:06 | NUR ---
IV REMOVED WITH NO REDNESS OR EDEMA AT SITE. REPORT CALLED TO [facility]. PATIENT TAKEN BY WHEELCHAIR TO THEIR VAN FOR TRANSPORT
--- NOTE | 2019-06-10 16:07 | NUR ---
OT NOTE: PT COMPLETED SIT TO STAND WITH SPV/SBA. PT COMPLETED ADL MOB WITH SBA. PT COMPLETED TOILETING AND HYGIENE WITH SBA. PT EXHIBITED INCREASED FUNCTIONAL INDEPENDENCE. THANK YOU, TAISHA PASCUAL
[2019-06-10 18:08] LABS: FACTOR II DNA ANALYSIS Negative (())
[2019-06-11 07:13] LABS: CA125 16.3 U/mL (0.0-38.1)
[2019-06-11 11:10] LABS: PROTEIN S - FREE 134 % (57-157); PROTEIN S - TOTAL 96 % (60-150)
[2019-06-11 14:09] LABS: LUPUS - INTERPRETATION Comment: (()); LUPUS - THROMBIN TIME 23.3 sec (0.0-23.0); LUPUS - dRVVT 31.4 sec (0.0-47.0); PTT-LA 44.3 sec (0.0-51.9)
--- NOTE | 2019-06-11 15:07 | MORECARE ---
CASE MANAGEMENT DISCHARGE SUMMARY PATIENT: JASS SAM UNIT: [id number] ADM DATE: 06/05/19 AGE: 78 : 39 SEX: F ROOM/BED: D.2230 AUTHOR: AJIT,DOC PHYSICIAN: REFERRING PHYSICIAN: JENAE LAUGHLIN MD DATE OF SERVICE: 06/11/19 Discharge Plan Patient Name: JASS SAM Facility: [facility]:[place] : 1940 Planned Disposition: Retirement Facility Anticipated Discharge Date: Discharge Date: 06/10/2019 Expected LOS: Initial Reviewer: [id number] Initial Review Date: 06/07/2019 Generated: 06/11/19 4:07 pm Comments DCP- Discharge Planning Updated by [id number]: Caitlin Camerongrzegorz on 06/10/19 11:[address] Plan [facility] I called and spoke to Fela there and she will call me back with a molded goods spot picker time. I informed Fela that patient is on 3 liters [place] oxygen. Discharging today to a skilled (Medicare) bed [facility]. DCP- Discharge Planning Updated by [id number]: Caitlin Jill on 06/09/19 2:[address] Primary has held discharge until cardiology sees the patient again and agrees with discharge. I had notified [facility] and informed that likely she can discharge tomorrow. DCP- Discharge Planning Updated by [id number]: Caitlin Melchor on 06/09/19 11:[address] Spoke with Ava at [facility] and rehab, she has been accepted. Ava states they can do a Lovenox bridge with Coumadin and have lab drawn and adjust as needed. I spoke with Esteban Krishna, they will discharge today. operations support specialist per Ava is at 2PM. She called her daughter in ultrasound and notified her . She will be going to a skilled (Medicare) bed. DCP- Discharge Planning Updated by [id number]: Kimberly Sena on 06/07/19 3:[address] Patient Name: JASS SAM Admission Status: Elective Accout number: [id number] Admission Date: 06-05-2019 : 1940 Admission Diagnosis: Attending: JENAE HONG Current LOS: 2 Anticipated DC Date: Planned Disposition: Primary Insurance: MEDICARE A & B Discharge Planning Comments: CM met with patient at bedside after explaining CM role and obtaining verbal consent. [facility] CHERELLE SIGNED. CM TO FOLLOW AND ASSIST. Body Maker: Kimberly Sena Appended by Kimberly Sena on 06/07/2019 16:04 CDT: FAXED REFERRAL TO [facility] [place]. DCPIA - Discharge Planning Initial Assessment Updated by [email or web address]: Kimberly Sena on 06/07/19 3:02 pm * Is the patient Alert and Oriented? Yes * PCP SMALLS * Pharmacy [facility] * Preadmission Environment Home with Family * ADLs Independent * Other Equipment WALKER, CPM * Additional services required to return to the preadmission environment? Yes * Can the patient safely return to the preadmission environment? Yes * Has this patient been hospitalized within the prior 30 days at any hospital? No Coverage Notice Reviewer: [id number] - Kimberly Sena Notice Issued Date-Time: 06/07/2019 14:58 Notice Type: Patient Choice Letter Notice Delivered To: Patient Relationship to Patient: Military Technology Manager Name: Delivery Method: HAND - Hand Delivered Brenda Days: Prior Verbal Notification: Recipient Understood Notice: Yes Recipient Signature: Yes Med Rec Note Co-signed by Attending: Coverage Notice Comment: [facility] Reviewer: [id number] Letty Melchor Notice Issued Date-Time: 06/09/2019 12:00 Notice Type: IM Discharge Notice Notice Delivered To: Patient Relationship to Patient: Self Military Technology Manager Name: Delivery Method: HAND - Hand Delivered Brenda Days: Prior Verbal Notification: Recipient Understood Notice: Yes Recipient Signature: Yes Med Rec Note Co-signed by Attending: Coverage Notice Comment: IMM explained, signed, given, copy placed in MR Last DP export: 06/10/19 11:27 a Patient Name: JASS SAM Page [phone] at 1507 All edits/amendments must be made on the electronic document DICTATION DATE: 06/11/19 1507 LEI MAKER: YORDY 06/11/19 150 RPT#: [id number] DC DATE:06/10/19 STATUS: DIS IN [facility] [address] [place] [address] END OF REPORT
[2019-06-13 14:08] LABS: PROTEIN C - ANTIGEN 81 % (60-150); PROTEIN C - FUNCTIONAL 106 % (73-180)
== END 2019-06-10 14:07 | DRG 299 ==
LOC: D.MS 02:08 → D.ICU 02:08 → D.MS 06-06 20:04
PROVIDERS: Emergency Medicine; Internal Medicine Hematology & Oncology; Internal Medicine Nephrology; Internal Medicine Pulmonary Disease; ADMIT Family Medicine; ATTEND Family Medicine
DX: T81.718A Complication of other artery following a procedure, not elsewhere classified, initial encounter (principal); J95.821 Acute postprocedural respiratory failure; E43 Unspecified severe protein-calorie malnutrition; J18.9 Pneumonia, unspecified organism; D68.59 Other primary thrombophilia; I26.99 Other pulmonary embolism without acute cor pulmonale; I95.9 Hypotension, unspecified; R55 Syncope and collapse; K21.9 Gastro-esophageal reflux disease without esophagitis; G47.33 Obstructive sleep apnea (adult) (pediatric); I10 Essential (primary) hypertension; E78.5 Hyperlipidemia, unspecified; I25.10 Atherosclerotic heart disease of native coronary artery without angina pectoris; I48.0 Paroxysmal atrial fibrillation; I48.91 Unspecified atrial fibrillation; I35.0 Nonrheumatic aortic (valve) stenosis; K58.9 Irritable bowel syndrome, unspecified; D50.9 Iron deficiency anemia, unspecified

== ENCOUNTER → 2019-06-29 12:58 | Outpatient (CLI) | payer MEDICARE, BC ==
[2019-06-07 13:39] VITALS: BMI 27.4
[~2019-06-29 12:58] MED LIST: ALBUTEROL SULF8.5 GM INH; ALEVE220 MG PO; ASPIRIN EC81 M1 PO; CARDIZEM 90 MG90 MG PO; COUMADIN6 MG PO; EVISTA60 MG PO; LISINOPRIL-HCT1 EAC4 PO; LOVENOX80 MG/0.8 SC; MERIBIN5 MG PO; MUCINEX DM ER1 EAC1 PO; MUPIROCIN22 GM TOPICAL; OMNICEF300 MG PO; Tessalon Perle PO; VITAMIN D250000 UNIT PO
== END | disposition home or self-care (01) ==
LOC: D.RAD 12:58
PROVIDERS: ATTEND Family Medicine
DX: R13.12 Dysphagia, oropharyngeal phase (principal)

== ENCOUNTER → 2020-12-25 11:38 | Outpatient (CLI) | payer MEDICARE, BC ==
[2019-06-07 13:39] VITALS: BMI 27.4
== END | disposition home or self-care (01) ==
LOC: D.LAB 11:38
PROVIDERS: ATTEND Internal Medicine Pulmonary Disease
DX: Z11.52 Encounter for screening for COVID-19 (principal)

== ENCOUNTER → 2020-12-29 10:10 | Outpatient (CLI) | payer MEDICARE, BC ==
[2019-06-07 13:39] VITALS: BMI 27.4
== END | disposition home or self-care (01) ==
LOC: D.RT 10:10
PROVIDERS: ATTEND Internal Medicine Pulmonary Disease
DX: J98.4 Other disorders of lung (principal); J98.11 Atelectasis; Z11.52 Encounter for screening for COVID-19